=== PATIENT | female | born 1975 | race Caucasian/White ===

== ENCOUNTER 2016-03-29 12:11 | Emergency (ER) | payer OTHER ==
[~2016-03-29] VITALS: Ht 177.8 cm; Wt 81.6 kg
[2016-03-29] MEDS ORDERED: SILV400C23 (12:31)
[2016-03-29] MEDS ORDERED: CEPH250C (12:31)
[2016-03-29] MEDS ORDERED: morphine INJ 10 MG/ML 1ML (SYR OR VIAL) IM STA (12:48)
[2016-03-29] MEDS ORDERED: TETANUS,DIPTH,PERTUSS P/F (BOOSTRIX) 0.5 ML VIAL IM STA (12:48)
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
[2016-03-29] MEDS ORDERED: ONDA4TAB11 PO (13:29)
[2016-03-29] MEDS ORDERED: HYDR-3816 PO (13:29)
[2016-03-29 13:35] VITALS: BP 0/0
== END 2016-03-29 13:35 | disposition home or self-care (01) ==
LOC: EDUNIT# 12:11 → ER 12:14
DX: T22.111A Burn of first degree of right forearm, initial encounter (principal); T22.112A Burn of first degree of left forearm, initial encounter; Z23 Encounter for immunization; X19.XXXA Contact with other heat and hot substances, initial encounter; Y92.531 Health care provider office as the place of occurrence of the external cause; Y99.8 Other external cause status
CPT/HCPCS: 90471; 90715; 96372; 99283

== ENCOUNTER → 2019-11-13 | Outpatient (CLI) | payer BC ==
[~2019-11-13] MED LIST: CEPH250C; HYDR-34 PO; ONDA4TAB11 PO; SILV400C23
--- NOTE | 2019-11-14 14:16 | Diagnostic Imaging Report ---
INDICATION: Routine screening. COMPARISON: 02/23/2017 and 07/22/2015. TECHNIQUE: 2D and 3D bilateral screening mammography was performed with CAD. FINDINGS: Bilateral breast implants are again noted. The implant contours are smooth. Scattered fibroglandular densities are identified bilaterally. The parenchymal pattern appears stable. No mass or malignant appearing microcalcifications are seen. The axillae are unremarkable. IMPRESSION: No mammographic features suspicious for malignancy are identified. ACR BI-RADS Category 2: Benign findings. Result letter will be mailed to the patient. Note: At least 10% of breast cancer is not imaged by mammography. Dictated by: Dictated on workstation # [id number]
== END ==
LOC: RAD 09:21
PROVIDERS: ATTEND Obstetrics & Gynecology
DX: Z12.31 Encounter for screening mammogram for malignant neoplasm of breast (principal)
CPT/HCPCS: 77063; 77067

== ENCOUNTER → 2020-12-13 | Outpatient (CLI) | payer BC ==
--- NOTE | 2020-12-13 12:44 | Diagnostic Imaging Report ---
INDICATION: Routine screening. COMPARISON is made with prior mammograms 11/13/2019 and 02/23/2017. 2-D and 3-D bilateral screening mammography was performed with CAD. Bilateral subpectoral breast implants are again noted. Implant contours are smooth. Both breasts are heterogeneously dense, limiting the sensitivity of mammography. No mass or malignant-appearing microcalcifications are seen. Axillae are unremarkable. IMPRESSION: BI-RADS Category 2 No mammographic features suspicious for malignancy are identified. ACR BI-RADS Category 2: Benign findings. Result letter will be mailed to the patient. Note: At least 10% of breast cancer is not imaged by mammography. Dictated by: Dictated on workstation # [id number]
== END ==
LOC: RAD 09:15
PROVIDERS: ATTEND Obstetrics & Gynecology
DX: Z12.31 Encounter for screening mammogram for malignant neoplasm of breast (principal)
CPT/HCPCS: 77063; 77067

== ENCOUNTER → 2020-12-18 | Outpatient (CLI) | payer BC ==
--- NOTE | 2020-12-18 14:42 | Diagnostic Imaging Report ---
INDICATION: Palpable mass right clavicle. TIME OF EXAM: 10:50 AM. FINDINGS: Two views of the right clavicle demonstrate normal acromioclavicular alignment. No fracture is seen. The soft tissues are unremarkable. The glenohumeral alignment is normal. IMPRESSION: No abnormality is detected. Dictated by: Dictated on workstation # [id number]
== END ==
LOC: RAD 10:03
PROVIDERS: ATTEND Family Medicine
DX: R22.31 Localized swelling, mass and lump, right upper limb (principal)
CPT/HCPCS: 73000

== ENCOUNTER → 2020-12-19 | Outpatient (CLI) | payer BC | LOC: ORTHO 14:19 | PROVIDERS: ATTEND Orthopaedic Surgery | DX: S43.201A Unspecified subluxation of right sternoclavicular joint, initial encounter (principal); X58.XXXA Exposure to other specified factors, initial encounter | CPT/HCPCS: 99202 ==

== ENCOUNTER → 2020-12-23 | Outpatient (CLI) | payer BC ==
--- NOTE | 2020-12-23 15:50 | Diagnostic Imaging Report ---
EXAMINATION: CT chest without contrast. TECHNIQUE: Multiple contiguous axial images were obtained through the chest without the use of intravenous contrast. All CT scans use one or more of the following dose optimizing techniques: automated exposure control, MA and/or KvP adjustment based on patient size and exam type or iterative reconstruction. HISTORY: Subluxation of sternoclavicular joint COMPARISON: None available. FINDINGS: Thyroid: The thyroid is normal. Mediastinum: Heart size is normal without significant pericardial effusion. The aorta is normal in caliber. No suspicious lymphadenopathy. Lungs and airways: The lungs are clear without consolidation, pleural effusion, or pneumothorax. 0.3 cm groundglass nodule within the right upper lobe (series 3 image 62). The airways are normal. Upper abdomen: The subphrenic structures are normal. Musculoskeletal: No suspicious osseous lesion or compression fracture. The sternoclavicular joints are intact without acute fracture, dislocation, or destructive osseous process. IMPRESSION: 1. No acute abnormality in the chest. 2. Unremarkable appearance of the sternoclavicular joints. 3. A 0.3 cm groundglass nodule within the right upper lobe. No specific follow-up is recommended. Dictated by: Dictated on workstation # [id number]
== END ==
LOC: RAD 15:18
PROVIDERS: ATTEND Orthopaedic Surgery
DX: S43.211A Anterior subluxation of right sternoclavicular joint, initial encounter (principal); R91.1 Solitary pulmonary nodule; X58.XXXA Exposure to other specified factors, initial encounter
CPT/HCPCS: 71250

== ENCOUNTER → 2021-05-27 | Outpatient (CLI) | payer BC | LOC: ORTHO 09:30 | PROVIDERS: ATTEND Orthopaedic Surgery | DX: R22.2 Localized swelling, mass and lump, trunk (principal) | CPT/HCPCS: 99213 ==

== ENCOUNTER → 2021-06-04 | Outpatient (CLI) | payer BC ==
[~2021-06-04] MED LIST changes: +GADOTERATE 0.5 MMOL/ML (CLARISCAN) 20 ML VIAL IV ONE
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
== END ==
LOC: RAD 09:30
PROVIDERS: ATTEND Orthopaedic Surgery
DX: R22.2 Localized swelling, mass and lump, trunk (principal)
CPT/HCPCS: 71552

== ENCOUNTER → 2022-04-08 | Outpatient (CLI) | payer BC, OTHER ==
[~2022-04-08] MED LIST changes: -GADOTERATE 0.5 MMOL/ML (CLARISCAN) 20 ML VIAL IV ONE
--- NOTE | 2022-04-08 12:34 | Diagnostic Imaging Report ---
INDICATION: Routine screening. COMPARISON: 12/13/2020 and 11/13/2019. TECHNIQUE: 2D and 3D bilateral screening mammography was performed with CAD. FINDINGS: Bilateral breast implants are again noted. The implant contours are smooth. There is no evidence of extracapsular rupture. Both breasts are heterogeneously dense, limiting the sensitivity of mammography. No dominant mass or malignant-appearing microcalcifications are seen. The axillae are unremarkable. IMPRESSION: No mammographic features suspicious for malignancy are identified. ACR BI-RADS Category 2: Benign findings. Result letter will be mailed to the patient. Note: At least 10% of breast cancer is not imaged by mammography. Dictated by: Dictated on workstation # [id number]
== END ==
LOC: RAD 09:09
PROVIDERS: ATTEND Obstetrics & Gynecology
DX: Z12.31 Encounter for screening mammogram for malignant neoplasm of breast (principal)
CPT/HCPCS: 77063; 77067